=== PATIENT | female | born 1980 | race Caucasian/White ===

== ENCOUNTER 2017-03-01 15:53 | Emergency (ER) | payer OTHER ==
[2017-03-01 15:57] VITALS: BP 115/80; BMI 34.4
[2017-03-01] MEDS ORDERED: NS 1000 ML 1,000 ML IV ONE (18:51)
[2017-03-01] MEDS ORDERED: ZOFRAN INJ 4 MG VIAL IVP ONE (18:51)
[2017-03-01] MEDS ORDERED: TORADOL 30 MG VIAL IVP STA (18:52)
--- NOTE | 2017-03-01 18:57 | DR.GENAD ---
HPI - PCP Primary Care Physician: NFD - Complaint/Symptoms Chief Complaint Doctors Comments: Patient complains of lower abdominal pain, decreased appetite with fever, diarrhea with generalized weakness. Patient states he think she is dehydrated becauses she has not been able to keep anything down today. She is complaining of pain and swelling in her lower abdomen and pelvis area today getting worst. She is having dizziness but denies headache or any recent trauma. states her periods has been regular and she has an IUD. She denies hematuria or venkatesh. Chief Complaint:: PATIENT STATED THAT SHE FEELS LIKE HER BODY IS EAT UP WITH INFECTION RIGHT NOW. SHE STATED THAT HER BOTTOM IS ALL SWOLLEN AND PAINFUL. - Nurses notes reviewed Nurses Notes Review: Yes - Source History Provided: Patient - Mode of Arrival Mode of Arrival: Ambulatory - Timing Onset of Chief Complaint: 02/22/17 Came on: Gradually - Duration Duration: Constant How lon Duration: Days - Location Location: lower abdominal pain and swelling - Severity Severity: Moderate - Modifying Factors Worsens:: nothing Improves:: nothing PMH - PMH Past Medical History: No Past Surgical History: Yes Surgical History: Cholecystectomy - Family History History of Family Medical Conditions: No - Social History Does patient currently use any type of tobacco product: Yes Have you used tobacco products in the last 12 months: Yes Type of Tobacco Use: Cigarettes Does any household member use tobacco: No Alcohol Use: None Do you use any recreational Drugs:: No Lives With: Family Lives Where: Home - infectious screening In the last 2 months have you had wt loss of >10#?: NO Have you had fever, night sweats or hemotysis?: No Have you traveled outside the country in the last 6 months?: No Isolation: Standard ROS - Review of Systems Constitutional: No Symptoms Reported, Weakness, Fatigue, Loss of Appetite. negative: See HPI, Chills, Diaphoresis, Fever, Malaise, Irritable, Other Eyes: No Symptoms Reported ENTM: No Symptoms Reported Respiratoy: No Symptoms Reported. negative: See HPI, Productive Cough, Non- Productive Cough, Moist Cough, Dry Cough, Hacking Cough, Barking Cough, Brassy Cough, Orthopnea, Short of Breath, Stridor, Wheezing, Hemoptysis, Other Cardiovascular: No Symptoms Reported Gastrointestinal/Abdominal: No Symptoms Reported, Abdominal Pain, Diarrhea, Nausea, Vomiting Genitourinary: No Symptoms Reported Neurological: No Symptoms Reported Musculoskeletal: No Symptoms Reported Integumentary: No Symptoms Reported Hematologic/Lymphatic: No Symptoms Reported Endocrine: No Symptoms Reported Psychiatric: No Symptoms Reported PE - Vital Signs Vitals: Pulse Rate 58 Respiratory Rate 20 Blood Pressure [Right Arm] 121/67 Blood Pressure [Left Arm] 106/56 Blood Pressure 115/80 O2 Sat by Pulse Oximetry 97 - General Limitations: No Limitations General Appearance: Alert, In Distress (mild) - Head Head Exam: Normal Inspection, Atraumatic, Normocephalic - Eyes Eye exam: Normal Appearance, PERRL, EOMI. negative: Scleral Icterus, Conjunctival Injection, Nystagmus, Miosis, Mydrasis, Periorbital Swelling, Periorbital Tenderness, Other - Neck Neck Exam: Normal Inspection, Full ROM, Trachea Midline - Chest Chest Inspection: Normal Inspection, Symmetric Chest Wall Rise - Respiratory Respiratory Exam: Normal Lung Sounds Bilat Respiratory Exam: Bilateral Clear to Auscultation - Cardiovascular Cardiovascular Exam: Regular Rate, Normal Rhythm, Normal Heart Sounds - Abdominal Exam Abdominal Exam: Normal Inspection, Normal Bowel Sounds, Soft Abdominal Tenderness: RLQ, Epigastrium, Suprapubic, Moderate - Extremities Extremities Exam: Normal Inspection, Full ROM, Normal Capillary Refill. negative: Tenderness, Edema, Joint Swelling, Calf Tenderness, Other - Back Back Exam: Normal Inspection, Full ROM. negative: Tenderness, (R) CVA Tenderness, (L) CVA Tenderness, Muscle Spasm, Paraspinal Tenderness, Vertebral Tenderness, Rashes, (R) Sciatic Notch Tenderness, (L) Sciatic Notch Tendern, (R ) Straight Leg Raise, (L) Straight Leg Raise, Other - Neurologic Neurological Exam: Alert, Oriented X3, CN II-XII Intact, Normal Gait, Reflexes Normal - Psychiatric Psychiatric Exam: Normal Affect, Normal Mood - Skin Skin Exam: Warm, Dry, Intact, Normal Color ROR - Labs Reviewed Laboratory Results Reviewed?: Yes (all labs and x-ray results reviewed and discussed with patient) Result Diagrams: 03/01/17 19:12 03/01/17 19:12 Laboratory: WBC 9.5 X10^3/uL (3.6-10.0) 03/01/17 19:12 RBC 4.80 X10^6/uL (3.5-5.4) 03/01/17 19:12 Hgb 14.6 g/dL (12.0-16.0) 03/01/17 19:12 Hct 42.7 % (36.0-47.0) 03/01/17 19:12 MCV 89.0 fL (80.0-100.0) 03/01/17 19:12 MCH 30.5 pg (27.0-34.0) 03/01/17 19:12 MCHC 34.3 g/dL (33.0-35.0) 03/01/17 19:12 RDW 14.4 % (11.6-16.5) 03/01/17 19:12 Plt Count 319 X10^3/uL (150.0-450.0) 03/01/17 19:12 MPV 8.7 fL (7.4-11.0) 03/01/17 19:12 Neut % 62.5 % (42.0-75.0) 03/01/17 19:12 Lymph % 26.9 % (21.0-51.0) 03/01/17 19:12 [place] % 5.9 % (0.0-13.0) 03/01/17 19:12 Eos % 3.9 % (0.9-2.9) H 03/01/17 19:12 Baso % 0.8 % (0.2-1.0) 03/01/17 19:12 Neut # 5.9 x10^3/uL (2.2-4.8) H 03/01/17 19:12 Lymph # 2.6 X10^3/uL (1.3-2.9) 03/01/17 19:12 [place] # 0.6 x10^3/uL (0.3-0.8) 03/01/17 19:12 Eos # 0.4 x10^3/uL (0.0-0.2) H 03/01/17 19:12 Baso # 0.1 X10^3/uL (0.0-0.1) 03/01/17 19:12 Absolute Nucleated RBC 0.0 /100WBC 03/01/17 19:12 Sodium 138 mmol/L (136-145) 03/01/17 19:12 Corrected Sodium TNP 03/01/17 19:12 Potassium 3.8 mmol/L (3.5-5.1) 03/01/17 19:12 Chloride 102 mmol/L (98-107) 03/01/17 19:12 Carbon Dioxide 31.1 mmol/L (21-32) 03/01/17 19:12 BUN 12 mg/dL (7-18) 03/01/17 19:12 Creatinine 1.06 mg/dL (0.55-1.02) H 03/01/17 19:12 Est GFR (MDRD) Af Amer > 60 (>60) 03/01/17 19:12 Est GFR (MDRD) Non-Af > 60 (>60) 03/01/17 19:12 Glucose 81 mg/dL (65-99) 03/01/17 19:12 Calcium 9.0 mg/dL (8.5-10.1) 03/01/17 19:12 Corrected Calcium TNP 03/01/17 19:12 Total Bilirubin 0.40 mg/dL (0.2-1.0) 03/01/17 19:12 AST 20 Units/L (15-37) 03/01/17 19:12 ALT 32 Units/L (12-78) 03/01/17 19:12 Alkaline Phosphatase 57 Units/L (46-116) 03/01/17 19:12 Total Protein 7.7 g/dL (6.4-8.2) 03/01/17 19:12 Albumin 3.6 g/dL (3.4-5.0) 03/01/17 19:12 Globulin 4.1 g/dL (2.5-4.5) 03/01/17 19:12 Albumin/Globulin Ratio 0.9 Ratio (1.1-2.1) L 03/01/17 19:12 Amylase 54 Units/L (25-115) 03/01/17 19:12 Lipase 167 Units/L (73-393) 03/01/17 19:12 HCG, Qual Negative <10 mIU/mL 03/01/17 19:12 Specimen Type Clean catch urine 03/01/17 21:08 Urine Color Yellow (YELLOW) 03/01/17 21:08 Urine Appearance Cloudy (CLEAR) 03/01/17 21:08 Urine pH 6.0 (5.0 - 8.0) 03/01/17 21:08 Ur Specific [place] 1.025 (1.000-1.030) 03/01/17 21:08 Urine Protein 2+ (NEGATIVE) 03/01/17 21:08 Urine Glucose (UA) Negative (NEGATIVE) 03/01/17 21:08 Urine Ketones Negative (NEGATIVE) 03/01/17 21:08 Urine Occult Blood 2+ (NEGATIVE) 03/01/17 21:08 Urine Nitrite Negative (NEGATIVE) 03/01/17 21:08 Urine Bilirubin Negative (NEGATIVE) 03/01/17 21:08 Urine Urobilinogen Normal (NORMAL) 03/01/17 21:08 Ur Leukocyte Esterase 3+ (NEGATIVE) 03/01/17 21:08 Urine RBC 15-20 /HPF (NEGATIVE) 03/01/17 21:08 Urine WBC 20-30 /HPF (NEGATIVE) 03/01/17 21:08 Ur Squamous Epith Cells Few /HPF (NEGATIVE) 03/01/17 21:08 Urine Bacteria 2+ /HPF (NEGATIVE) 03/01/17 21:08 Urine Mucus Few /HPF (NEGATIVE) 03/01/17 21:08 Ur Culture Indicated? Yes/culture set up 03/01/17 21:08 Urine Opiates Screen Negative (NEG=<300) 03/01/17 21:08 Urine Methadone Screen Negative (NEG=<300) 03/01/17 21:08 Ur Barbiturates Screen Negative (NEG=<200) 03/01/17 21:08 Ur Phencyclidine Scrn Negative (NEG=<25) 03/01/17 21:08 Ur Amphetamines Screen Positive (NEG=<1000) A 03/01/17 21:08 U Benzodiazepines Scrn Negative (NEG=<200) 03/01/17 21:08 Urine Cocaine Screen Negative (NEG=<300) 03/01/17 21:08 U Marijuana (THC) Screen Positive (NEG=<50) A 03/01/17 21:08 H. pylori IgG Antibody Negative (NEGATIVE) 03/01/17 19:12 - XRAY XRAY Interpreted by: Radiologist (CT abdomen: Soft tissue within the subcarinal region) - Diagnosis Discharge Problem: Gastroenteritis, Chest mass Urinary tract infection Qualifiers: Urinary tract infection type: acute cystitis - Discharge Plan Disposition: 01 HOME, SELF-CARE Condition: Stable Prescriptions: Ciprofloxacin HCl [CIPRO 500 MG TAB *] 500 mg PO Q12H #20 tab - Follow ups/Referrals Follow ups/Referrals: NFD,None [Primary Care Provider] - 3 days Sy Marks [STAFF PHYSICIAN] - 3 days - Instructions Instructions: Urinary Tract Infection, Adult, Viral Gastroenteritis, Adult, [id number]
[2017-03-01 19:25] LABS: BASOPHILS # (AUTO) 0.1 X10^3/uL (0.0-0.1); BASOPHILS % (AUTO) 0.8 % (0.2-1.0); EOSINOPHILS # (AUTO) 0.4 x10^3/uL (0.0-0.2); EOSINOPHILS % (AUTO) 3.9 % (0.9-2.9); HEMATOCRIT 42.7 % (36.0-47.0); HEMOGLOBIN 14.6 g/dL (12.0-16.0); LYMPHOCYTES # (AUTO) 2.6 X10^3/uL (1.3-2.9); LYMPHOCYTES % (AUTO) 26.9 % (21.0-51.0); MEAN CORPUSCULAR HEMOGLOBIN 30.5 pg (27.0-34.0); MEAN CORPUSCULAR HGB CONC 34.3 g/dL (33.0-35.0); MEAN PLATELET VOLUME 8.7 fL (7.4-11.0); MONOCYTES # (AUTO) 0.6 x10^3/uL (0.3-0.8); MONOCYTES % (AUTO) 5.9 % (0.0-13.0); NEUTROPHILS # (AUTO) 5.9 x10^3/uL (2.2-4.8); NEUTROPHILS % (AUTO) 62.5 % (42.0-75.0); PLATELET COUNT 319 X10^3/uL (150.0-450.0); RED CELL DISTRIBUTION WIDTH 14.4 % (11.6-16.5); WHITE BLOOD COUNT 9.5 X10^3/uL (3.6-10.0)
[2017-03-01] MEDS ORDERED: ZOFRAN TAB 4 MG ONE (19:35)
[2017-03-01] MEDS ORDERED: TORADOL 30 MG VIAL ONE (19:35)
[2017-03-01] MEDS ORDERED: NS 1000 ML 1,000 ML ONE (19:35)
[2017-03-01 19:36] LABS: ALANINE AMINOTRANSFERASE 32 Units/L (12-78); ALBUMIN 3.6 g/dL (3.4-5.0); ALKALINE PHOSPHATASE 57 Units/L (46-116); AMYLASE 54 Units/L (25-115); ASPARTATE AMINO TRANSFERASE 20 Units/L (15-37); BLOOD UREA NITROGEN 12 mg/dL (7-18); CARBON DIOXIDE 31.1 mmol/L (21-32); CHLORIDE 102 mmol/L (98-107); CREATININE 1.06 mg/dL (0.55-1.02); LIPASE 167 Units/L (73-393); SODIUM 138 mmol/L (136-145); TOTAL PROTEIN 7.7 g/dL (6.4-8.2); eGFR BLACK RACES > 60 (>60); eGFR NON BLACK RACES > 60 (>60)
[2017-03-01] MEDS ORDERED: ZOFRAN INJ 4 MG VIAL ONE (19:44)
[2017-03-01 19:49] LABS: SERUM PREGNANCY TEST, QUAL NEGATIVE <10 mIU/mL
--- NOTE | 2017-03-01 20:19 | CT ---
CT OF THE ABDOMEN AND PELVIS WITH CONTRAST HISTORY: Right lower quadrant and suprapubic pain Comparison: None Technique: Multiple axial images of the abdomen and pelvis were obtained from the lung bases to the pubic symphy sis follow the administration of IV contrast. Dose reduction techniques including Automated Exposure Control (AEC) and adjustment of mA and kV were utlized. Findings: There is partially visualized mass within the subcarinal region measuring 5.2 x 4.1 cm on series 3, i mage 4. There is no pericardial effusion. Lung bases are clear without focal consolidation, pleural e ffusion or pneumothorax. Liver and spleen are normal in size, enhancement characteristics and contour. No focal lesions. The p ortal vein is patent. No ductal dilitation. Gallbladder absent. The pancreas is unremarkable. Adrenal glands are normal. Kidneys enhance symmetrically without hydronephrosis or nephrolithiasis. No bowel obstruction or inflammation. Normal appendix. No abnormal appearing mesenteric or retroperit sheth lymph nodes. No free fluid or fluid collections. The bladder is normal in appearance. IUD within the uterus. No free fluid or abnormal pelvic lymph no melanie. 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 IMPRESSION: 1. No etiology to explain patient's suprapubic and right lower quadrant pain on this limited, noncon trast examination. 2. Poorly characterized and partially visualized soft tissue within the subcarinal region which is al so poorly characterized in the absence of intravenous contrast. Differential considerations include e sophageal or bronchogenic duplication cysts although malignancy cannot be completely excluded. This w ould, however, be disfavored a patient of this age. Would recommend contrast-enhanced examination of the chest on a nonemergent outpatient basis unless patient has acute chest symptoms. Reported By:
[2017-03-01 21:24] LABS: BILIRUBIN,URINE NEGATIVE (NEGATIVE); BLOOD/HEMOGLOBIN,URINE 2+ (NEGATIVE); GLUCOSE, URINE NEGATIVE (NEGATIVE); KETONES,URINE NEGATIVE (NEGATIVE); LEUKOCYTE ESTERASE ,URINE 3+ (NEGATIVE); NITRITES,URINE NEGATIVE (NEGATIVE); PROTEIN,URINE 2+ (NEGATIVE); UROBILINOGEN,URINE NORMAL (NORMAL)
[2017-03-01 21:25] LABS: APPEARANCE,URINE CLOUDY (CLEAR); BACTERIA,URINE 2+ /HPF (NEGATIVE); COLOR,URINE YELLOW (YELLOW); MUCUS,URINE FEW /HPF (NEGATIVE); RBC,URINE 15-20 /HPF (NEGATIVE); SQUAMOUS EPITHELIAL CELL,UR FEW /HPF (NEGATIVE)
[2017-03-01] MEDS ORDERED: LEVAQUIN TAB 500 MG ONE (22:25)
[2017-03-01] MEDS ORDERED: LEVAQUIN TAB 500 MG PO SCH (23:00)
== END 2017-03-01 22:30 | disposition home or self-care (01) ==
LOC: ER 16:17
DX: K52.89 Other specified noninfective gastroenteritis and colitis (principal); R22.2 Localized swelling, mass and lump, trunk; N39.0 Urinary tract infection, site not specified
CPT/HCPCS: 36415; 74176; 80053; 80307; 81001; 82150; 83690; 84703; 85025; 86677; 87086; 96365; 96374; 96375; 99283; A4216; A4222; S0181; G0434; J1885; J2405

== ENCOUNTER → 2017-03-12 | Outpatient (CLI) | payer OTHER ==
[2017-03-01 15:57] VITALS: BP 115/80
[~2017-03-12] MED LIST: NS 100 ML IV 100 ML IV ONE
== END ==
LOC: RAD 11:03
PROVIDERS: ATTEND Nurse Practitioner Family
DX: R22.0 Localized swelling, mass and lump, head (principal)
CPT/HCPCS: A4222

== ENCOUNTER → 2017-03-14 | Outpatient (CLI) | payer OTHER ==
[2017-03-01 15:57] VITALS: BP 115/80
--- NOTE | 2017-03-17 09:33 | CT ---
STUDY: CT CHEST WITHWITHOUT CONTRAST HISTORY: Gallbladder removal. Mass in chest per abdominal CT. Comparison: None. Technique: Multiple axial images of the chest were obtained from the thoracic inlet to the upper abdo men without the administration of IV contrast. Findings: There is a 4.3 (AP) x 5.0 (TR) x 7.2 (SI) cm solid soft tissue mass in the mediastinum, jus t below the dexter and to the right of the esophagus. This measures approximately 44 Hounsfield units , not significantly changed from the previous nonenhanced CT. This lesion is well-circumscribed, with sharp margins. No abnormal foci of enhancement are identified. No calcifications are appreciated. No clearly defined pathologically enlarged lymph nodes are identified. There is no significant peric ardial effusion. The ascending thoracic aorta measures approximately 4.2 cm in AP dimension. The melanie cending thoracic aorta measures 2.6 cm in AP dimension. The central pulmonary arterial system has a n ormal enhanced appearance. Evaluation of the lung parenchyma shows no evidence of consolidation, significant infiltrate, effusio n, or pneumothorax. No pulmonary nodule or mass is identified. The bony thorax is unremarkable in i ts appearance. The visualized portions of the upper abdomen are grossly unremarkable. IMPRESSION: 1. 7.2 cm lower mediastinal bordered by of the dexter superiorly and the esophagus along its left la teral border. 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 Bronchoge elizabeth cysts are commonly sub-carinal in location and may have a variable attenuation. An esophageal dup lication cyst could also have this appearance. A solitary lymph node of this size in the absence of a dditional enlarged lymph nodes is felt to be unlikely. A neoplasm of tracheal or esophageal origin is felt to be less likely. Reported By:
== END ==
LOC: RAD 08:42
PROVIDERS: ATTEND Nurse Practitioner Family
DX: R22.2 Localized swelling, mass and lump, trunk (principal)
CPT/HCPCS: 71260; A4222

== ENCOUNTER 2017-06-24 09:40 | Emergency (ER) | payer OTHER ==
[2017-06-24 09:44] VITALS: BP 108/61; BMI 36.0
--- NOTE | 2017-06-24 10:10 | DR.SOBA ---
HPI - Time Seen Time seen: 09:50 - Primary Care Physician Primary Care Physician: JORDON RYDER - Complaints Chief Complaint Doctors Comments: I agree with subjective statement as written. Chief Complaint:: PT. C/O SHORTNESS OF BREATH AND COUGHING UP BLOOD. PT. HAD A BRONCHOSCOPY THIS PAST FRIDAY PER DR. GRAJEDA IN [place], [place] WELL A BIOPSY DUE TO A MASS IN HER CHEST. PT. STATES THE SHORTNESS OF BREATH BEGAN YESTERDAY BUT HAS WORSENED. PT. BEGAN COUGHING UP BLOOD THIS MORNING. - Source History Provided: Patient - Mode of Arrival Mode of Arrival: Ambulatory - Timing Onset of Chief Complaint: 06/23/17 PMH - PMH Past Medical History: No Past Surgical History: Yes Surgical History: Cholecystectomy - Family History History of Family Medical Conditions: No - Social History Does patient currently use any type of tobacco product: Yes Have you used tobacco products in the last 12 months: Yes Type of Tobacco Use: Cigarettes Does any household member use tobacco: No Alcohol Use: None Do you use any recreational Drugs:: No Lives With: Family Lives Where: Home - infectious screening In the last 2 months have you had wt loss of >10#?: NO Have you had fever, night sweats or hemotysis?: No Have you traveled outside the country in the last 6 months?: No Isolation: Standard ROS - Review of Systems Constitutional: No Symptoms Reported Eyes: No Symptoms Reported ENTM: No Symptoms Reported Respiratoy: No Symptoms Reported Cardiovascular: No Symptoms Reported Gastrointestinal/Abdominal: No Symptoms Reported Genitourinary: No Symptoms Reported Neurological: No Symptoms Reported Musculoskeletal: No Symptoms Reported Integumentary: No Symptoms Reported Hematologic/Lymphatic: No Symptoms Reported Endocrine: No Symptoms Reported Psychiatric: No Symptoms Reported All Other Systems: Reviewed and Negative PE - Vital Signs Vitals: Temperature 98.3 F Pulse Rate 81 Respiratory Rate 28 Blood Pressure [Right Arm] 121/67 Blood Pressure [Left Arm] 106/56 Blood Pressure 108/61 O2 Sat by Pulse Oximetry 100 - General Limitations: No Limitations General Appearance: Alert, In No Apparent Distress - Head Head Exam: Normal Inspection, Atraumatic - Eyes Eye exam: Normal Appearance, PERRL, EOMI - ENT ENT Exam: Normal Exam - Neck Neck Exam: Normal Inspection, Full ROM - Chest Chest Inspection: Normal Inspection, Symmetric Chest Wall Rise - Respiratory Respiratory Exam: Normal Lung Sounds Bilat Respiratory Exam: Bilateral Clear to Auscultation - Cardiovascular Cardiovascular Exam: Regular Rate, Normal Rhythm - Abdominal Exam Abdominal Exam: Normal Inspection, Normal Bowel Sounds Abdominal Tenderness: negative: RUQ, RLQ, LUQ, LLQ, Epigastrium, Suprapubic, Diffuse, Mild, Moderate, Severe, Other - Extremities Extremities Exam: Normal Inspection, Full ROM - Back Back Exam: Normal Inspection, Full ROM - Neurologic Neurological Exam: Alert, Oriented X3, CN II-XII Intact - Psychiatric Psychiatric Exam: Normal Affect, Normal Mood, Depressed ROR - Labs Reviewed Laboratory Results Reviewed?: Yes Result Diagrams: 06/24/17 10:19 06/24/17 10:19 Laboratory: WBC 11.2 X10^3/uL (3.6-10.0) H 06/24/17 10:19 RBC 4.39 X10^6/uL (3.5-5.4) 06/24/17 10:19 Hgb 13.1 g/dL (12.0-16.0) 06/24/17 10:19 Hct 39.1 % (36.0-47.0) 06/24/17 10:19 MCV 89.3 fL (80.0-100.0) 06/24/17 10:19 MCH 29.8 pg (27.0-34.0) 06/24/17 10:19 MCHC 33.4 g/dL (33.0-35.0) 06/24/17 10:19 RDW 14.3 % (11.6-16.5) 06/24/17 10:19 Plt Count 309 X10^3/uL (150.0-450.0) 06/24/17 10:19 MPV 8.8 fL (7.4-11.0) 06/24/17 10:19 Neut % 70.6 % (42.0-75.0) 06/24/17 10:19 Lymph % 18.9 % (21.0-51.0) L 06/24/17 10:19 Saline % 6.3 % (0.0-13.0) 06/24/17 10:19 Eos % 3.4 % (0.9-2.9) H 06/24/17 10:19 Baso % 0.8 % (0.2-1.0) 06/24/17 10:19 Neut # 7.9 x10^3/uL (2.2-4.8) H 06/24/17 10:19 Lymph # 2.1 X10^3/uL (1.3-2.9) 06/24/17 10:19 Saline # 0.7 x10^3/uL (0.3-0.8) 06/24/17 10:19 Eos # 0.4 x10^3/uL (0.0-0.2) H 06/24/17 10:19 Baso # 0.1 X10^3/uL (0.0-0.1) 06/24/17 10:19 Absolute Nucleated RBC 0.0 /100WBC 06/24/17 10:19 INR Target Range - 06/24/17 10:19 INR 0.92 (0.8-1.3) 06/24/17 10:19 PTT 28.8 SECONDS (22.9-36.5) 06/24/17 10:19 PTT Comment - 06/24/17 10:19 D-Dimer 351 ng/mL (0-400) 06/24/17 10:19 Sodium 137 mmol/L (136-145) 06/24/17 10:19 Corrected Sodium TNP 06/24/17 10:19 Potassium 3.7 mmol/L (3.5-5.1) 06/24/17 10:19 Chloride 104 mmol/L (98-107) 06/24/17 10:19 Carbon Dioxide 23.1 mmol/L (21-32) 06/24/17 10:19 BUN 8 mg/dL (7-18) 06/24/17 10:19 Creatinine 0.78 mg/dL (0.55-1.02) 06/24/17 10:19 Est GFR (MDRD) Af Amer > 60 (>60) 06/24/17 10:19 Est GFR (MDRD) Non-Af > 60 (>60) 06/24/17 10:19 Glucose 98 mg/dL (65-99) 06/24/17 10:19 Calcium 8.5 mg/dL (8.5-10.1) 06/24/17 10:19 Corrected Calcium 9.4 mg/dL (8.5-10.1) 06/24/17 10:19 Total Bilirubin 0.20 mg/dL (0.2-1.0) 06/24/17 10:19 AST 8 Units/L (15-37) L 06/24/17 10:19 ALT 20 Units/L (12-78) 06/24/17 10:19 Alkaline Phosphatase 51 Units/L (46-116) 06/24/17 10:19 Total Protein 7.0 g/dL (6.4-8.2) 06/24/17 10:19 Albumin 2.9 g/dL (3.4-5.0) L 06/24/17 10:19 Globulin 4.1 g/dL (2.5-4.5) 06/24/17 10:19 Albumin/Globulin Ratio 0.7 Ratio (1.1-2.1) L 06/24/17 10:19 - XRAY XRAY Interpreted by: Radiologist (chest negative) - Diagnosis Discharge Problem: S/P bronchoscopy with biopsy Dyspnea Qualifiers: Dyspnea type: shortness of breath Qualified Code(s): R06.02 - Shortness of breath; R06.00 - Dyspnea, unspecified; R06.01 - Orthopnea - Discharge Plan Condition: Stable - Follow ups/Referrals Follow ups/Referrals: SHARONA RYDER [Primary Care Provider] - 3 days - Instructions
[2017-06-24 10:28] LABS: BASOPHILS # (AUTO) 0.1 X10^3/uL (0.0-0.1); BASOPHILS % (AUTO) 0.8 % (0.2-1.0); EOSINOPHILS # (AUTO) 0.4 x10^3/uL (0.0-0.2); EOSINOPHILS % (AUTO) 3.4 % (0.9-2.9); HEMATOCRIT 39.1 % (36.0-47.0); HEMOGLOBIN 13.1 g/dL (12.0-16.0); LYMPHOCYTES # (AUTO) 2.1 X10^3/uL (1.3-2.9); LYMPHOCYTES % (AUTO) 18.9 % (21.0-51.0); MEAN CORPUSCULAR HEMOGLOBIN 29.8 pg (27.0-34.0); MEAN CORPUSCULAR HGB CONC 33.4 g/dL (33.0-35.0); MEAN CORPUSCULAR VOLUME 89.3 fL (80.0-100.0); MEAN PLATELET VOLUME 8.8 fL (7.4-11.0); MONOCYTES # (AUTO) 0.7 x10^3/uL (0.3-0.8); MONOCYTES % (AUTO) 6.3 % (0.0-13.0); NEUTROPHILS # (AUTO) 7.9 x10^3/uL (2.2-4.8); NEUTROPHILS % (AUTO) 70.6 % (42.0-75.0); PLATELET COUNT 309 X10^3/uL (150.0-450.0); RED BLOOD COUNT 4.39 X10^6/uL (3.5-5.4); RED CELL DISTRIBUTION WIDTH 14.3 % (11.6-16.5); WHITE BLOOD COUNT 11.2 X10^3/uL (3.6-10.0)
--- NOTE | 2017-06-24 10:36 | RAD ---
HISTORY: Dyspnea Study: Single-view chest, done portably Comparison: CT scan of the chest done 03/14/2017. Findings: Trachea is midline. Heart size is normal. Lungs and pleural spaces are clear. Osseous structures are intact. IMPRESSION: Normal chest. Reported By:
[2017-06-24 10:39] LABS: ALANINE AMINOTRANSFERASE 20 Units/L (12-78); ALBUMIN 2.9 g/dL (3.4-5.0); ALKALINE PHOSPHATASE 51 Units/L (46-116); ASPARTATE AMINO TRANSFERASE 8 Units/L (15-37); BLOOD UREA NITROGEN 8 mg/dL (7-18); CALCIUM 8.5 mg/dL (8.5-10.1); CARBON DIOXIDE 23.1 mmol/L (21-32); CHLORIDE 104 mmol/L (98-107); COR CA(FOR HYPOALB) 9.4 mg/dL (8.5-10.1); CREATININE 0.78 mg/dL (0.55-1.02); SODIUM 137 mmol/L (136-145); eGFR BLACK RACES > 60 (>60); eGFR NON BLACK RACES > 60 (>60)
[2017-06-24] MEDS ORDERED: NS 1000 ML 1,000 ML IV SCH (11:00)
== END 2017-06-24 11:59 | disposition home or self-care (01) ==
LOC: ER 09:50
DX: R06.02 Shortness of breath (principal); R06.00 Dyspnea, unspecified; R06.01 Orthopnea; Z98.890 Other specified postprocedural states
CPT/HCPCS: 36415; 71045; 80053; 85025; 85378; 85610; 85730; 96365; 99282; 99283; A4222